=== PATIENT | male | born 1980 | race Native Hawaiian/Other Pacific Islander ===

== ENCOUNTER 2020-08-20 08:57 | Outpatient (REF) | payer MEDICARE, MEDICAID, SELFPAY | END 2020-08-20 08:58 | disposition home or self-care (01) | LOC: HO.LAB 08:57 | PROVIDERS: PCP Physician Assistant; Visit Provider Internal Medicine | DX: Z20.828 Contact with and (suspected) exposure to other viral communicable diseases (principal) | CPT/HCPCS: 36415; 87635 ==

== ENCOUNTER 2022-08-20 12:28 | Outpatient (REF) | payer MEDICARE, MEDICAID, SELFPAY ==
[2022-08-20 13:22] LABS: Influenza A PCR NEGATIVE (Negative); Influenza B PCR NEGATIVE (Negative); Resp Syncy Virus RNA Qual PCR NEGATIVE (Negative); SARS COV2 PCR INHOUSE NEGATIVE (Negative)
== END 2022-08-20 12:29 | disposition home or self-care (01) ==
LOC: HO.LNP 12:28
PROVIDERS: Visit Provider Internal Medicine
DX: Z20.822 Contact with and (suspected) exposure to COVID-19 (principal); R09.89 Other specified symptoms and signs involving the circulatory and respiratory systems
CPT/HCPCS: 0241U

== ENCOUNTER 2022-12-28 11:12 | Outpatient (REF) | payer MEDICARE, MEDICAID, SELFPAY ==
[2022-12-28 11:58] LABS: Influenza A PCR NEGATIVE (Negative); Influenza B PCR NEGATIVE (Negative); Resp Syncy Virus RNA Qual PCR NEGATIVE (Negative); SARS COV2 PCR INHOUSE NEGATIVE (Negative)
== END 2022-12-28 11:13 | disposition home or self-care (01) ==
LOC: HO.LNP 11:12
PROVIDERS: Visit Provider Nurse Practitioner Family
DX: Z20.822 Contact with and (suspected) exposure to COVID-19 (principal); R09.89 Other specified symptoms and signs involving the circulatory and respiratory systems
CPT/HCPCS: 0241U

== ENCOUNTER 2023-11-04 10:54 | Outpatient (AMB) | payer MEDICARE, MEDICAID, SELFPAY ==
[2023-11-04 11:09] VITALS: BP 112/70; PULSE 88; RESP 17; BMI 28.4
--- NOTE | 2023-11-04 11:09 | MHC.PC.OV ---
Vital Signs 11/04/23 11:09 Height 5 ft 6 in Weight 176 lb 2 oz BMI 28.4 BP 112/70 Blood Pressure Location Lt brachial Position Sitting Respiration 17 Pulse 88 Pulse Source Palpation Intake Visit Reasons: pe Intake Note: Patient is here today for a physical. Environmental Advisor Required: No Accompanied by: Son Allergies acetaminophen [ACETAMINOPHEN] Adverse Reaction (Mild, Verified 11/04/23 11:32) chest tightness SEASONAL ALLERGIES Allergy (Unknown, Uncoded 11/04/23 11:11) UNKNOWN - RECEIVES WEEKLY ALLERGY INJECTIONS Medication List - Last Reconciled 11/04/23 by Timbo Herron PA-C albuterol sulfate 90 mcg/actuation 2 puffs PO Q4H 30 days budesonide-formoterol 160-4.5 mcg/actuation (Symbicort) 1 inh inhalation BID 30 days bupropion HCl 300 mg PO QAM bupropion HCl 150 mg PO QAM cetirizine 10 mg PO DAILY PRN citalopram 20 mg PO DAILY loratadine 10 mg PO DAILY montelukast 10 mg PO DAILY risperidone mg PO risperidone 2 mg PO BEDTIME Tobacco use date assessed: 02/16/23 Dental Screening Dental Screen Date: 11/04/23 Did you have a dental visit in the last 12 months?: Yes Did you have a dental problem in the last 6 months where you did not have access to dental care?: No Was dental information given to patient?: Patient has dentist HPI pe HPI Details Patient is a 42-year-old male here today for routine annual physical. Patient has a past medical history significant for moderate persistent asthma, major depressive disorder, tobacco dependence. Moderate persistent asthma: Unfortunately continues to smoke cigarettes and found it very difficult to quit smoking. He does use his rescue inhaler several times per week. Does have a nebulizer at home which he seldom uses for asthma exacerbations. He will continue to try to stop smoking use of nicotine replacement therapy. Does get allergy inj weekly. He does believe there is mold in his apartment. Offered him community navigation evaluation for allergy triggers at his home though he declines. .. Borderline high cholesterol: Most recent lipid panel showing borderline high cholesterol. Will recheck fasting lipids. .. Major depressive disorder: Continues to be followed by a therapist and a psychiatrist who manages his mental health medications. He feels stable on the current medications he is taking for his mental health. Vaccines: Up-to-date with SwiftypeID vaccine, up-to-date with tetanus, needs up-to-date pneumonia vaccine, needs flu vaccine PFSH Surgical History No pertinent past surgical history Family History (Updated 11/04/23 @ 11:39 by Timbo Herron PA-C) Father Diabetes Asthma COPD (chronic obstructive pulmonary disease) Afib Mother Hypertension Maternal Grandmother Cancer Social History Housing: Apartment Alcohol intake: current Patient Tobacco Use Status: Current everyday Tobacco user Tobacco use type: Cigarette Cigarettes Per Day: 10 e-Cigarette/Vaping Use: Never Used Second Hand Smoke Exposure: Yes service: No Current occupational status: unemployed Cognitive needs: No Hearing needs: No Vision needs: No Questionnaire Thrive Questionnaire Date Thrive assessed: 02/16/23 ZEINAB-7 AMB Questionnaire ZEINAB-7 Date ZEINAB - 7 assessed: 02/16/23 Source: Developed by Drs. Endy Brantley, Ankita Ramos, Junior Stanton and colleagues, with an educational oneida from [employer]. ACT Questionnaire In the past 4 weeks, how much of the time did your asthma keep you from getting as much done at work, school or at home?: A little of the time During the past 4 weeks, how often have you had shortness of breath?: Not at all During the past 4 weeks, how often did your asthma symptoms wake you up at night or earlier than usual in the morning?: Once or twice per week During the past 4 weeks, how often have you had to use your rescue inhaler or nebulizer medication?: 2-3 times a week How would you rate your asthma control during the past 4 weeks?: Well controlled ACT Interpretation: Negative Score: 20 Review of Systems Const Denies body aches, Denies chills, Denies excessive sweating, Denies fatigue, Denies fever(s) and Denies headache(s) Eyes Denies blurry vision ENT Denies dysphagia, Denies vertigo, Denies dizziness, Denies headache(s), Denies hearing loss and Denies tinnitus Card Denies chest pain, Denies chest pain with activity, Denies syncope, Denies irregular heart rhythm and Denies dyspnea Resp Denies chest congestion, Denies cough, Denies hemoptysis, Denies dyspnea and Denies wheezing GI Denies abdominal pain, Denies melena, Denies hematochezia, Denies coffee ground emesis, Denies dysphagia, Denies diarrhea, Denies nausea and Denies vomiting Denies difficulty urinating, Denies dysuria, Denies urinary frequency, Denies urinary hesitancy and Denies urinary urgency Musc Denies arthralgias, Denies limited range of motion, Denies muscle cramps and Denies muscle weakness Skin/Breast Denies rash and Denies skin ulcer Neuro Denies Abnormal speech present, Denies confusion, Denies vertigo, Denies dizziness, Denies syncope, Denies headache(s), Denies memory loss and Denies seizure-like activity Psych Denies anxiety, Denies confusion, Denies depression, Denies memory loss, Denies panic attacks and Denies paranoia Endo Denies excessive sweating, Denies fatigue, Denies flushing, Denies polydipsia and Denies polyuria Aller/Immun Denies wheezing Physical exam (Primary Care) Vital Signs: Last Vital Signs Pulse 88 11/04/23 11:09 Resp 17 11/04/23 11:09 BP 112/70 11/04/23 11:09 BMI result Body Mass Index 28.4 Tobacco/Smoking Status: Tobacco use Status Tobacco use date assessed 02/16/23 11/04/23 11:09 Patient Tobacco Use Status Current everyday Tobacco 11/04/23 11:09 Tobacco use type Cigarette 11/04/23 11:09 e-Cigarette/Vaping Use Never Used 11/04/23 11:09 Are you ready to quit: No Tobacco cessation counseling provided: Yes Items discussed: Nicotine replacement and QuitWorks Relapse Prevention: discussed the importance of a supportive environment, discussed negative mood or depression after quitting, weight gain after smoking is common and discussed dietary, exercise and/or lifestyle changes Number of minutes spent counselin CPT code: 03355 - 4-10 Minutes Thrive Assessment: Date of Thrive Assessment Date Thrive assessed 02/16/23 11/04/23 11:09 Const General: cooperative, comfortable, no acute distress, alert and awake; No confusion Orientation/consciousness: oriented to person, oriented to place, patient oriented x3 and No confusion HENMT Head: Yes normocephalic Ears: external ears normal and TM's normal bilaterally Face and sinus: No sinus tenderness Mouth: Normal oral and palatal mucosa present and tongue normal Teeth and gingiva: dentition normal and gingiva normal Throat: Yes posterior oropharynx normal, Yes tonsils normal and Yes uvula midline Eyes Conjunctivae: conjunctivae normal Sclerae: sclerae normal Pupils: Equal, round and reactive pupils present EOM: EOMs intact bilaterally Direct Ophthalmoscopy: No no photophobia Neck Neck: Yes no lymphadenopathy, No tender and Yes no JVD Thyroid: Thyroid normal Carotids: no bruits Chest Chest palpation & inspection: no tenderness Resp Effort & Inspection: normal respiratory effort, no audible wheezes, not labored and no stridor Auscultation: no crackles, no rales, no rhonchi and no wheezes Cardio Jugular venous distension: no JVD Rate: regular rate, not bradycardic and not tachycardic Rhythm: regular rhythm Bruits: no carotid bruits Peripheral pulses: Peripheral pulses 2+ throughout GI Inspection: Yes normal to inspection, No abdominal wall ecchymosis and No visible herniation Palpation (GI): Soft to palpation, nontender, no guarding, not rigid and No hepatosplenomegaly present Auscultation: normoactive bowel sounds General: Yes no CVA tenderness Back/Spine/Pelvis Back: no CVA tenderness and No back tenderness Cervical Spine: cervical ROM normal Thoracic/Lumbar Spine: thoracic and lumbar spine normal to inspection, straight leg raise negative bilaterally, No thoraco-lumbar ROM limited and No lumbar spinal tenderness Skin Lesions: no lesions Rashes: no rashes Wounds: no wounds Neuro General: oriented to person, oriented to place, patient oriented x3, CN's II-XI intact bilaterally and No confusion Cranial nerves: Yes Equal, round and reactive pupils present and Yes Normal accommodation reflex present Cognition (Neuro): normal cognition Speech: No Abnormal speech present Gait exam (Neuro): Normal gait present Motor exam (neuro): 5/5 motor strength present throughout Extrem Right upper extremity: full ROM; no cyanosis Left upper extremity: full ROM; no cyanosis Right lower extremity: no edema Left lower extremity: no edema Psych Appearance: grossly normal Mental Status: mental status grossly normal Affect: normal affect Attitude: cooperative Thought process: Normal thought process present Assessment and Plan Assessment & Plan (1) Annual physical exam: Code(s): Z00.00 - Encounter for general adult medical examination without abnormal findings (2) Tobacco dependence: Code(s): F17.200 - Nicotine dependence, unspecified, uncomplicated Plan: Patient does understand he needs to quit smoking though at this time is not willing to do so. Offered nicotine replacement though already has them available to him at home. (3) Asthma: Code(s): J45.909 - Unspecified asthma, uncomplicated Qualifiers: Asthma complication type: uncomplicated Asthma persistence: intermittent Asthma severity: mild Qualified Code(s): J45.20 - Mild intermittent asthma, uncomplicated Plan: Patient reports his asthma has been fairly well stable with p.r.n. use of his albuterol inhaler and daily use of his Symbicort. Understands he needs to quit smoking. He will try nicotine replacement (4) Borderline high cholesterol: Code(s): E78.9 - Disorder of lipoprotein metabolism, unspecified Plan: Patient has a history of borderline high cholesterol, advised on getting fasting labs to evaluate total cholesterol. Otherwise has been working on lifestyle modifications to reduce high cholesterol foods in his diet. Orders: Orders IgE Antibody (Anti-IgE IgG) Today J45.20 - Mild intermittent asthma, uncomplicated Medications: New nicotine 1 patch transdermal DAILY 14 days 14 ea 1RF F17.200 - Nicotine dependence, unspecified, uncomplicated Changed From loratadine 10 mg PO DAILY 90 tabs 3RF J45.20 - Mild intermittent asthma, uncomplicated To loratadine 10 mg PO DAILY 90 days 90 tabs 3RF J45.20 - Mild intermittent asthma, uncomplicated Refilled budesonide-formoterol 160-4.5 mcg/actuation (Symbicort) 1 inh inhalation BID 30 days 10.2 grams 1RF J45.20 - Mild intermittent asthma, uncomplicated albuterol sulfate 90 mcg/actuation 2 puffs PO Q4H 30 days 8.5 grams 3RF J45.20 - Mild intermittent asthma, uncomplicated montelukast 10 mg PO DAILY 90 tabs 3RF J45.20 - Mild intermittent asthma, uncomplicated Coding Level of Care Code Est Pt Prev Care 40-64y(44309) Diagnoses Annual physical exam Z00.00 Tobacco dependence F17.200 Mild intermittent asthma without complication J45.20 Asthma complication type: uncomplicated Asthma persistence: intermittent Asthma severity: mild Borderline high cholesterol E78.9 Additional Codes Vital Signs *Quality* - CPT code: 78851 - 4-10 Minutes ([id number])
== END 2023-11-04 12:00 | disposition home or self-care (01) ==
PROVIDERS: PCP Physician Assistant; Visit Provider Physician Assistant
DX: Z00.00 Encounter for general adult medical examination without abnormal findings (principal); F17.210 Nicotine dependence, cigarettes, uncomplicated; J45.20 Mild intermittent asthma, uncomplicated; F33.1 Major depressive disorder, recurrent, moderate; E78.9 Disorder of lipoprotein metabolism, unspecified
CPT/HCPCS: 99396

== ENCOUNTER 2023-11-10 09:48 | Outpatient (AMB) | payer MEDICARE, MEDICAID, SELFPAY ==
[2023-11-10 10:54] VITALS: BP 120/80; PULSE 83; TEMP 36.5; O2SAT 96; BMI 32.9
--- NOTE | 2023-11-10 10:54 | MHC.OFFWIV ---
Intake Vital Signs 11/10/23 10:54 Height 5 ft 2 in Weight 180 lb BMI 32.9 BP 120/80 Blood Pressure Location Lt brachial Position Sitting Pulse 83 Pulse Source Pulse Oximeter Temp 97.7 F Temp Source Temporal Artery Scan Pulse Oximetry (%) 96 Oxygen Delivery Method Room Air Intake Visit Reasons: EP chest congestion cough [id number] Intake Note: pt is here today for chest congestion cough started 3 days ago Patient Tobacco Use Status: Current everyday Tobacco user Allergies acetaminophen [ACETAMINOPHEN] Adverse Reaction (Mild, Verified 11/10/23 11:22) chest tightness SEASONAL ALLERGIES Allergy (Unknown, Uncoded 11/04/23 11:11) UNKNOWN - RECEIVES WEEKLY ALLERGY INJECTIONS Medication List - Last Reconciled 11/10/23 by Clementine Norman, [facility]- albuterol sulfate 90 mcg/actuation 2 puffs PO Q4H 30 days budesonide-formoterol 160-4.5 mcg/actuation (Symbicort) 1 inh inhalation BID 30 days bupropion HCl 300 mg PO QAM bupropion HCl 150 mg PO QAM cetirizine 10 mg PO DAILY PRN citalopram 20 mg PO DAILY loratadine 10 mg PO DAILY 90 days montelukast 10 mg PO DAILY nicotine 1 patch transdermal DAILY 14 days risperidone mg PO risperidone 2 mg PO BEDTIME Do you need a note to return to daycare/school/sports/work: Yes HPI HPI Comments History of Present Illness Details here today c/o cough w sputum in the setting of asthma sx started 3 days ago UTD on covid vax but not flu denies fever, chills, chest pain taking maintenance inhaler as directed; has not used TEAGAN as didnt think he needed it yet PFSH Surgical History No pertinent past surgical history Family History (Updated 11/04/23 @ 11:39 by Timbo Herron PA-C) Father Diabetes Asthma COPD (chronic obstructive pulmonary disease) Afib Mother Hypertension Maternal Grandmother Cancer Social History Housing: Apartment Alcohol intake: current Patient Tobacco Use Status: Current everyday Tobacco user Tobacco use type: Cigarette Cigarettes Per Day: 10 e-Cigarette/Vaping Use: Never Used Second Hand Smoke Exposure: Yes service: No Current occupational status: unemployed Cognitive needs: No Hearing needs: No Vision needs: No Review of Systems Const All systems reviewed & are unremarkable except as noted in HPI and below Physical Exam Vital Signs: Last Vital Signs Temp 97.7 F 11/10/23 10:54 Pulse 83 11/10/23 10:54 BP 120/80 11/10/23 10:54 Pulse Ox 96 11/10/23 10:54 Oxygen Delivery Method Room Air 11/10/23 10:54 BMI result Body Mass Index 32.9 Const Other: awake alert nad conjunctiva clear bilar TM intact clear bilat Nares patent, turbinates pale and edematous L>R RRR LS dim throughout, speaking in full setences, mild cough during exam Assessment & Plan Assessment & Plan (1) Asthma exacerbation: Code(s): J45.901 - Unspecified asthma with (acute) exacerbation Qualifiers: Asthma severity: mild Asthma persistence: intermittent Qualified Code(s): J45.21 - Mild intermittent asthma with (acute) exacerbation Plan: . Medications: New azithromycin For 250 mg dose pack: take 500 mg today (day 1), then 250 mg for 4 days (days 2-5) PO 5 days 6 tabs 0RF Patient Instructions: reports doing well w/ the above. he should cont inhaler and make sure to use TEAGAN. did not rx pred as he is undergoing allergy shots and this will interfere should any sx get worse, advised to RTO Coding Level of Care Code Est Pt Level 3 (95306) Diagnoses Mild intermittent asthma with exacerbation J45.21 Asthma severity: mild Asthma persistence: intermittent
== END 2023-11-10 12:11 | disposition home or self-care (01) ==
PROVIDERS: PCP Physician Assistant; Visit Provider Nurse Practitioner Family
DX: J45.21 Mild intermittent asthma with (acute) exacerbation (principal)
CPT/HCPCS: 99213

== ENCOUNTER 2024-04-29 09:05 | Outpatient (AMB) | payer MEDICARE, MEDICAID, SELFPAY ==
[2024-04-29 09:09] VITALS: BP 118/72; PULSE 78; TEMP 36.8; O2SAT 97
--- NOTE | 2024-04-29 09:09 | MHC.OFFWIV ---
Intake Vital Signs 04/29/24 09:09 Height 5 ft 2 in BP 118/72 Blood Pressure Location Rt brachial Position Sitting Pulse 78 Pulse Source Pulse Oximeter Temp 98.2 F Temp Source Oral Pulse Oximetry (%) 97 Intake Visit Reasons: EP sore throat, cough, mucus Intake Note: pt is here for sore throat, cough with mucous Patient Tobacco Use Status: Current everyday Tobacco user Allergies acetaminophen [ACETAMINOPHEN] Adverse Reaction (Mild, Verified 04/29/24 09:19) chest tightness SEASONAL ALLERGIES Allergy (Unknown, Uncoded 04/29/24 09:19) UNKNOWN - RECEIVES WEEKLY ALLERGY INJECTIONS Medication List - Last Reconciled 04/29/24 by Stacy Blevins CNP albuterol sulfate 90 mcg/actuation 2 puffs PO Q4H 30 days budesonide-formoterol 160-4.5 mcg/actuation (Symbicort) 1 inh inhalation BID 30 days bupropion HCl XL 150 mg PO QAM cetirizine 10 mg PO DAILY PRN citalopram 20 mg PO DAILY loratadine 10 mg PO DAILY 90 days montelukast 10 mg PO DAILY risperidone 2 mg PO BEDTIME Do you need a note to return to daycare/school/sports/work: Yes HPI HPI Comments History of Present Illness Details This is a 43-year-old male with history of asthma who presents to walk in clinic for complaint of sore throat, barking cough, and wheezing x 4 days. He does report intermittent fever and chills. He denies recent travel, contact with known Covid, Flu or RSV. He also denies CP, SOB, dizziness, headache, sinus pressure, sputum production, abdominal pain, nausea, vomiting, changes in bowels or bladder. [facility] Surgical History No pertinent past surgical history Family History Father Diabetes Asthma COPD (chronic obstructive pulmonary disease) Afib Mother Hypertension Maternal Grandmother Cancer Social History Housing: Apartment Alcohol intake: current Patient Tobacco Use Status: Current everyday Tobacco user Tobacco use type: Cigarette Cigarettes Per Day: 10 e-Cigarette/Vaping Use: Never Used Second Hand Smoke Exposure: Yes service: No Current occupational status: unemployed Cognitive needs: No Hearing needs: No Vision needs: No Review of Systems Const All systems reviewed & are unremarkable except as noted in HPI and below Reports as per HPI Physical Exam Vital Signs: Last Vital Signs Temp 98.2 F 04/29/24 09:09 Pulse 78 04/29/24 09:09 BP 118/72 04/29/24 09:09 Pulse Ox 97 04/29/24 09:09 Const Other: General: awake, alert, oriented. Answers questions appropriately. Fully engaged in examination. Skin: warm, dry, intact HEENT: TMs intact bilaterally, without erythema or exudate. Posterior pharynx mildly erythema without exudate. Sclera without icterus or injection. Cardiac: External chest normal in appearance. Respiratory: Dry course cough, bilateral upper lobe expiratory wheezes auscultated, bilateral lower lobes diminshed. Abdomen: without gross distension. Neurological: Oriented to person, place, time and situation. Thought process intact. Psychiatric: Appropriate mood and affect. Good judgment and insight. Results AMB Rapid Strep AMB Rapid Strep Negative Last Edit by Hemant Lu CMA on 04/29/24 09:26 Results Reviewed Results Reviewed: Laboratory Last Values Strep Scn Rapid Clinic Negative 04/29/24 09:26 Assessment & Plan Assessment & Plan (1) URI (upper respiratory infection): Code(s): J06.9 - Acute upper respiratory infection, unspecified Qualifiers: URI type: unspecified URI Qualified Code(s): J06.9 - Acute upper respiratory infection, unspecified Plan: This is a 43-year-old male with a hx of asthma seen today in office for complaint of symptoms of upper respiratory infection, barking dry cough, sore throat and wheezing x 4 days. Rapid strep test negative Will treat with azithromycin 250 mg, 2 tabs po today, followed by 1 tab po qd x 4 days for suspected bronchitis, instructed to take antibiotic with food to reduce GI upset. Instructed to return to office for worsening or unresolved symptoms or f/u with PCP. Orders: Orders AMB Rapid Strep Screen Today Z13.9 - Encounter for screening, unspecified Medications: New azithromycin For 250 mg dose pack: take 500 mg today (day 1), then 250 mg for 4 days (days 2-5) PO 6 tabs 0RF J06.9 - Acute upper respiratory infection, unspecified Coding Level of Care Code Est Pt Level 2 (59049) Diagnoses Upper respiratory tract infection, unspecified type J06.9 URI type: unspecified URI
== END 2024-04-29 09:34 | disposition home or self-care (01) ==
PROVIDERS: PCP Physician Assistant; Visit Provider Nurse Practitioner Acute Care
DX: J06.9 Acute upper respiratory infection, unspecified (principal); J02.9 Acute pharyngitis, unspecified
CPT/HCPCS: 87880; 99212

== ENCOUNTER 2024-05-08 14:19 | Outpatient (AMB) | payer MEDICARE, MEDICAID, SELFPAY ==
--- NOTE | 2024-05-08 14:20 | A.OFFPC_ITS ---
Vital Signs 05/08/24 14:22 Height 5 ft 2 in Weight 175 lb 2 oz BMI 32.0 BP 126/84 Blood Pressure Location Lt brachial Position Sitting Pulse 76 Pulse Source Pulse Oximeter Pulse Oximetry (%) 96 Oxygen Delivery Method Room Air Intake Visit Reasons: f/u asthma Community Action Worker Required: No Accompanied by: Self / Same As Patient Allergies acetaminophen [ACETAMINOPHEN] Adverse Reaction (Mild, Verified 05/08/24 14:31) chest tightness SEASONAL ALLERGIES Allergy (Unknown, Uncoded 05/08/24 14:31) UNKNOWN - RECEIVES WEEKLY ALLERGY INJECTIONS Medication List - Last Reconciled 05/08/24 by Timbo Herron PA-C albuterol sulfate 90 mcg/actuation 2 puffs PO Q4H 30 days budesonide-formoterol 160-4.5 mcg/actuation (Symbicort) 1 inh inhalation BID 30 days bupropion HCl XL 150 mg PO QAM cetirizine 10 mg PO DAILY PRN citalopram 20 mg PO DAILY loratadine 10 mg PO DAILY 90 days montelukast 10 mg PO DAILY risperidone 2 mg PO BEDTIME Tobacco use date assessed: 05/08/24 Dental Screening Dental Screen Date: 05/08/24 Did you have a dental visit in the last 12 months?: Yes Did you have a dental problem in the last 6 months where you did not have access to dental care?: No Was dental information given to patient?: Patient has dentist HPI f/u asthma HPI Details Patient is a 43-year-old male here today for follow-up visit Patient has a past medical history significant for moderate persistent asthma, major depressive disorder, tobacco dependence. Has a part-time job at a local [employer]. Moderate persistent asthma: Unfortunately continues to smoke cigarettes and found it very difficult to quit smoking. He does use his rescue inhaler several times per week. Does have a nebulizer at home which he seldom uses for asthma exacerbations. He will continue to try to stop smoking use of nicotine replacement therapy. .. Borderline high cholesterol: Most recent lipid panel showing borderline high cholesterol. He admits to dietary indiscretion. Will recheck fasting lipids before upcoming office visit. .. Major depressive disorder: Continues to be followed by a therapist and a psychiatrist who manages his mental health medications. He feels stable on the current medications he is taking for his mental health. He still struggles with anxiety to which he has been working on. [facility] Surgical History No pertinent past surgical history Family History Father Diabetes Asthma COPD (chronic obstructive pulmonary disease) Afib Mother Hypertension Maternal Grandmother Cancer Social History Housing: Apartment Alcohol intake: current Patient Tobacco Use Status: Current everyday Tobacco user Tobacco use type: Cigarette Cigarettes Per Day: 10 e-Cigarette/Vaping Use: Never Used Second Hand Smoke Exposure: Yes service: No Current occupational status: unemployed Cognitive needs: No Hearing needs: No Vision needs: No Questionnaire PHQ-9 Over the last 2 weeks, how often have you been bothered by any of the following problems? 1. Little interest or pleasure in doing things: not at all 2. Feeling down, depressed, or hopeless: not at all 3. Trouble falling or staying asleep, or sleeping too much: not at all 4. Feeling tired or having little energy: not at all 5. Poor appetite or overeating: not at all 6. Feeling bad about yourself - or that you are a failure or have let yourself or your family down: not at all 7. Trouble concentrating on things, such as reading the newspaper or watching television: not at all 8. Moving or speaking so slowly that other people could have noticed. Or the opposite - being so fidgety or restless that you have been moving around a lot more than usual: not at all 9. Thoughts that you would be better off or of hurting yourself in some way: not at all Total score: 0 Depression Screening Interpretation: Negative Depression Screening Done: Yes 81000 - PHQ-9 Billing: Yes Source: Developed by Drs. Endy Brantley, Ankita Ramos, Junior Stanton and colleagues, with an educational oneida from [employer]. Thrive Questionnaire Date Thrive assessed: 05/08/24 I am a: Patient What is your living situation today?: I have a steady place to live Within the past 12 months, did the food you bought not last and you didn't have the money to get more?: Never true Within the past 12 months, did you worry whether your food would run out before you got money to buy more?: Never true Do you have trouble paying for medicines?: No Do you have trouble getting transportation to medical appointments?: No Do you have trouble paying your heating and electricity bill?: No Do you have trouble taking care of your child, family member or friend?: No Do you have trouble with day-to-day activities such as bathing, preparing meals, shopping, managing finances, etc.?: No Are you currently unemployed and looking for a job?: No Are you interested in more education?: No Please select the resources that you would like help with: None Currently or been in a relationship where the following occur: no concerns reported THRIVE Score: 0 AUDIT C Alcohol Use Questionnaire (AUDIT-C) 1. How often do you have a drink containing alcohol?: Monthly or less 2. How many drinks containing alcohol do you have on a typical day when you are drinking?: 1 or 2 3. How often do you have six or more drinks on one occasion?: Never Total Score: 1 ZEINAB-7 AMB Questionnaire ZEINAB-7 Date ZEINAB - 7 assessed: 05/08/24 Feeling nervous, anxious, or on edge: 0 = Not at all Not being able to stop or control worryin = Not at all Worrying too much about different things: 0 = Not at all Trouble relaxin = Not at all Being so restless that it is hard to sit still: 0 = Not at all Becoming easily annoyed or irritable: 0 = Not at all Feeling afraid as if something awful might happen: 0 = Not at all Total ZEINAB-7 score (0-4 normal; 5-9 mild; 10-14 moderate; 15-21 severe): 0 Source: Developed by Drs. Endy Brantley, Ankita Ramos, Junior Stanton and colleagues, with an educational oneida from [employer]. ZEINAB-7 Assessment Billing ZEINAB-7 Assessment Tool: ZEINAB-7 Assessment 29719 ACT Questionnaire In the past 4 weeks, how much of the time did your asthma keep you from getting as much done at work, school or at home?: Some of the time During the past 4 weeks, how often have you had shortness of breath?: 1-2 times a week During the past 4 weeks, how often did your asthma symptoms wake you up at night or earlier than usual in the morning?: Once or twice per week During the past 4 weeks, how often have you had to use your rescue inhaler or nebulizer medication?: More than 3 times per day How would you rate your asthma control during the past 4 weeks?: Somewhat controlled ACT Interpretation: Positive ACT Branch: Follow up visit scheduled Score: 15 Review of Systems Const Denies headache(s) Eyes Denies loss of vision ENT Denies vertigo, Denies dizziness, Denies headache(s) and Denies sore throat Card Denies chest pain, Denies leg edema and Denies lightheadedness Resp Denies cough, Denies hemoptysis and Denies wheezing GI Denies abdominal pain, Denies melena, Denies constipation, Denies diarrhea and Denies vomiting Denies dysuria, Denies urinary frequency and Denies urinary urgency Musc Denies arthralgias, Denies joint swelling, Denies numbness and Denies tingling Neuro Denies Abnormal speech present, Denies behavioral changes, Denies vertigo, Denies dizziness, Denies headache(s), Denies loss of vision, Denies memory loss, Denies numbness and Denies tingling Psych Denies anxiety, Denies behavioral changes, Denies depression, Denies memory loss and Denies panic attacks Cuco/Lymph Denies easy bleeding and Denies easy bruising Aller/Immun Denies wheezing Physical exam (Primary Care) Vital Signs: Last Vital Signs Pulse 76 05/08/24 14:22 BP 126/84 05/08/24 14:22 Pulse Ox 96 05/08/24 14:22 Oxygen Delivery Method Room Air 05/08/24 14:22 BMI result Body Mass Index 32.0 Tobacco/Smoking Status: Tobacco use Status Tobacco use date assessed 05/08/24 05/08/24 14:29 Patient Tobacco Use Status Current everyday Tobacco 05/08/24 14:20 Tobacco use type Cigarette 05/08/24 14:20 e-Cigarette/Vaping Use Never Used 05/08/24 14:20 PHQ-9: PHQ-9 Score PHQ-9: Total score 0 05/08/24 14:36 Depression Screening Interpretation: Negative Thrive Assessment: Date of Thrive Assessment Date Thrive assessed 05/08/24 05/08/24 14:29 Currently or been in a relationship where the following occur: no concerns reported Const General: healthy appearing, no acute distress, alert and awake Nutritional Appearance: well nourished Orientation/consciousness: oriented to person, oriented to place and oriented to time HENMT Ears: TM's normal bilaterally General nose exam: Normal nasal mucous membranes and turbinates present Eyes Conjunctivae: conjunctivae normal Sclerae: sclerae normal Pupils: Equal, round and reactive pupils present Neck Neck: Yes no lymphadenopathy and Yes no JVD Thyroid: Thyroid normal Carotids: no bruits Resp Effort & Inspection: normal respiratory effort and not tachypneic Auscultation: no crackles, no rales, no rhonchi and no wheezes Cardio Rate: regular rate Rhythm: regular rhythm Heart sounds: no murmurs and normal S1 and S2 GI Palpation (GI): Soft to palpation, nontender, no hepatomegaly and no splenomegaly Auscultation: normal bowel sounds Skin General skin exam: no rashes or lesions noted and dry skin Neuro General: oriented to person, oriented to place and oriented to time Cranial nerves: Yes Equal, round and reactive pupils present Speech: No Abnormal speech present Gait exam (Neuro): Normal gait present Motor exam (neuro): no tremor noted Extrem Right upper extremity: full ROM Left upper extremity: full ROM Right lower extremity: full ROM; no edema Left lower extremity: full ROM; no edema Psych Mental Status: mental status grossly normal Speech and movement: Normal speech and movement present Affect: normal affect Attitude: cooperative Thought process: Normal thought process present Assessment and Plan Assessment & Plan (1) Tobacco dependence: Code(s): F17.200 - Nicotine dependence, unspecified, uncomplicated Plan: Patient does understand he needs to quit smoking though at this time is not willing to do so. Offered nicotine replacement though already has them available to him at home. (2) Asthma: Code(s): J45.909 - Unspecified asthma, uncomplicated Qualifiers: Asthma complication type: uncomplicated Asthma persistence: intermittent Asthma severity: mild Qualified Code(s): J45.20 - Mild intermittent asthma, uncomplicated Plan: Patient reports his asthma has been fairly well stable with p.r.n. use of his albuterol inhaler and daily use of his Symbicort. Understands he needs to quit smoking. (3) Borderline high cholesterol: Code(s): E78.9 - Disorder of lipoprotein metabolism, unspecified Plan: Patient has a history of borderline high cholesterol, advised on getting fasting labs to evaluate total cholesterol. Otherwise has been working on lifestyle modifications to reduce high cholesterol foods in his diet. (4) Allergic rhinitis: Code(s): J30.9 - Allergic rhinitis, unspecified Qualifiers: Allergic rhinitis seasonality: unspecified Allergic rhinitis trigger: other Qualified Code(s): J30.89 - Other allergic rhinitis Plan: Continues to rotate his anti allergy medications. He reports his dog had a few months ago and allergies have been a bit better. Orders: Orders Lipid Panel 05/08/24 E78.9 - Disorder of lipoprotein metabolism, unspecified Comprehensive [facility]. Panel Fast 05/08/24 Z13.1 - Encounter for screening for diabetes mellitus Complete Blood Count no Diff 05/08/24 J45.20 - Mild intermittent asthma, uncomplicated IgE Antibody (Anti-IgE IgG) 05/08/24 J45.20 - Mild intermittent asthma, uncomplicated Resp Allergy Profile Region I 05/08/24 J45.20 - Mild intermittent asthma, uncomplicated, R05.9 - Cough, unspecified Medications: Changed From cetirizine 10 mg PO DAILY PRN allergies J45.20 - Mild intermittent asthma, uncomplicated To cetirizine 10 mg PO DAILY 90 tabs 1RF allergies 90 days J45.20 - Mild intermittent asthma, uncomplicated Refilled budesonide-formoterol 160-4.5 mcg/actuation (Symbicort) 1 inh inhalation BID 10.2 grams 1RF 30 days J45.20 - Mild intermittent asthma, uncomplicated loratadine 10 mg PO DAILY 90 tabs 3RF 90 days J45.20 - Mild intermittent asthma, uncomplicated montelukast 10 mg PO DAILY 90 tabs 3RF J45.20 - Mild intermittent asthma, uncomplicated Patient Instructions: Goals: Quit smoking, total cholesterol to be below 200 Barriers: Adherence to healthy eating habits and physical activity. Availability of cigarettes Coding Level of Care Code Est Pt Level 4 (37785) Diagnoses Tobacco dependence F17.200 Mild intermittent asthma without complication J45.20 Asthma complication type: uncomplicated Asthma persistence: intermittent Asthma severity: mild Borderline high cholesterol E78.9 Allergic rhinitis due to other allergic trigger, unspecified seasonality J30.89 Allergic rhinitis seasonality: unspecified Allergic rhinitis trigger: other Additional Codes ZEINAB-7 Assessment Billing - ZEINAB-7 Assessment Tool: ZEINAB-7 Assessment [id number] ([id number])
[2024-05-08 14:22] VITALS: BP 126/84; PULSE 76; O2SAT 96; BMI 32.0
== END 2024-05-08 14:52 | disposition home or self-care (01) ==
PROVIDERS: PCP Physician Assistant; Visit Provider Physician Assistant
DX: J45.20 Mild intermittent asthma, uncomplicated (principal); F17.200 Nicotine dependence, unspecified, uncomplicated; E78.9 Disorder of lipoprotein metabolism, unspecified; J30.89 Other allergic rhinitis
CPT/HCPCS: 99214

== ENCOUNTER 2024-07-27 12:51 | Outpatient (AMB) | payer MEDICARE, MEDICAID, SELFPAY ==
[2024-07-27 13:18] VITALS: BP 124/84; PULSE 83; TEMP 36.9; O2SAT 98; BMI 27.4
--- NOTE | 2024-07-27 13:18 | MHC.OFFWIV ---
Intake Vital Signs 07/27/24 13:18 Height 5 ft 8 in Weight 180 lb BMI 27.4 BP 124/84 Blood Pressure Location Lt brachial Position Sitting Pulse 83 Pulse Source Pulse Oximeter Temp 98.5 F Temp Source Oral Pulse Oximetry (%) 98 Oxygen Delivery Method Room Air Intake Visit Reasons: EP congestion, mucus Intake Note: pt c/o congestion, mucus, sore throat, cough. Started 3 days ago Patient Tobacco Use Status: Current everyday Tobacco user Allergies acetaminophen [ACETAMINOPHEN] Adverse Reaction (Mild, Verified 07/27/24 13:24) chest tightness SEASONAL ALLERGIES Allergy (Unknown, Uncoded 07/27/24 13:24) UNKNOWN - RECEIVES WEEKLY ALLERGY INJECTIONS Medication List - Last Reconciled 07/27/24 by Yolanda Solano NP albuterol sulfate 90 mcg/actuation 2 puffs PO Q4H 30 days budesonide-formoterol 160-4.5 mcg/actuation (Symbicort) 1 inh inhalation BID 30 days bupropion HCl XL 150 mg PO QAM cetirizine 10 mg PO DAILY PRN citalopram 20 mg PO DAILY montelukast 10 mg PO DAILY risperidone 2 mg PO BEDTIME Do you need a note to return to daycare/school/sports/work: No HPI HPI Comments History of Present Illness Details 43 y/o male patient who presents to the walk in clinic with c/o URI symptoms for 4-5 days now. PFSH Surgical History No pertinent past surgical history Family History Father Diabetes Asthma COPD (chronic obstructive pulmonary disease) Afib Mother Hypertension Maternal Grandmother Cancer Social History Housing: Apartment Alcohol intake: current Patient Tobacco Use Status: Current everyday Tobacco user Tobacco use type: Cigarette Cigarettes Per Day: 10 e-Cigarette/Vaping Use: Never Used Second Hand Smoke Exposure: Yes service: No Current occupational status: unemployed Cognitive needs: No Hearing needs: No Vision needs: No Review of Systems Const All systems reviewed & are unremarkable except as noted in HPI and below Physical Exam Vital Signs: Last Vital Signs Temp 98.5 F 07/27/24 13:18 Pulse 83 07/27/24 13:18 BP 124/84 07/27/24 13:18 Pulse Ox 98 07/27/24 13:18 Oxygen Delivery Method Room Air 07/27/24 13:18 BMI result Body Mass Index 27.4 Const General: cooperative, comfortable and no acute distress Orientation/consciousness: patient oriented x3 HEENT Head: Yes normocephalic Ears: external ears normal and TM abnormal with fluid behind the TM General nose exam: Abnormal mucous membranes and turbinates present boggy and erythematous and Nasal discharge present Face and sinus: Yes normal facial exam Mouth: moist mucous membranes Throat: Yes postnasal drainage Resp Effort & Inspection: normal respiratory effort and able to speak in complete sentences Auscultation: clear to auscultation bilaterally, no crackles, no rales, no rhonchi and wheezes inspiratory wheezes and upper bilaterally Cardio Heart sounds: S1 normal heart sound present and S2 normal heart sound present Neuro General: patient oriented x3 Results AMB Rapid Strep AMB Rapid Strep Negative Last Edit by Hayder Hopkins CMA on 07/27/24 13:41 Results Reviewed Results Reviewed: Laboratory Last Values Strep Scn Rapid Clinic Negative 07/27/24 13:39 Assessment & Plan Assessment & Plan (1) URI (upper respiratory infection): Code(s): J06.9 - Acute upper respiratory infection, unspecified Qualifiers: URI type: unspecified URI Qualified Code(s): J06.9 - Acute upper respiratory infection, unspecified Plan: Ordered Z-pack Acetaminophen for pain relief Ordered SARs and Rapid strep Orders: Orders AMB Rapid Strep Screen Today Z13.9 - Encounter for screening, unspecified SARS-CoV2/FLU/RSV Today J06.9 - Acute upper respiratory infection, unspecified Medications: New azithromycin 500 mg PO DAILY 3 days 3 tabs 0RF J06.9 - Acute upper respiratory infection, unspecified Discontinued loratadine Discontinued Reason: Patient no longer taking 10 mg PO DAILY PRN J45.20 - Mild intermittent asthma, uncomplicated Coding Level of Care Code Est Pt Level 3 (02610) Diagnoses Upper respiratory tract infection, unspecified type J06.9 URI type: unspecified URI Time Spent (min) 15
== END 2024-07-27 14:05 | disposition home or self-care (01) ==
PROVIDERS: PCP Physician Assistant; Visit Provider Nurse Practitioner Family
DX: J06.9 Acute upper respiratory infection, unspecified (principal); J02.9 Acute pharyngitis, unspecified
CPT/HCPCS: 87880; 99213

== ENCOUNTER 2024-07-27 13:39 | Outpatient (REF) | payer MEDICARE, MEDICAID, SELFPAY ==
[2024-07-27 18:30] LABS: Influenza A PCR NEGATIVE (Negative); Influenza B PCR NEGATIVE (Negative); Resp Syncy Virus RNA Qual PCR NEGATIVE (Negative); SARS COV2 PCR INHOUSE POSITIVE (Negative)
== END 2024-07-27 13:40 | disposition home or self-care (01) ==
LOC: HO.LAB 13:39
PROVIDERS: Visit Provider Nurse Practitioner Family
DX: J06.9 Acute upper respiratory infection, unspecified (principal)
CPT/HCPCS: 0241U

== ENCOUNTER 2024-12-11 16:36 | Emergency (ER) | payer MEDICARE, MEDICAID, SELFPAY ==
--- NOTE | ~2024-12-11 | XR_ITS ---
CLINICAL HISTORY: cough 2 view chest x-ray Comparison: CR/IN - CHEST 2 VIEWS - 01/07/18 23:54 EST CR - CHEST 2 VIEWS [id number] - 08/24/17 14:02 EDT Findings: No consolidation or effusion. Normal size heart. No acute fracture. IMPRESSION: 1. No acute findings. This document has been electronically signed by: Deacon Hirsch MD on 12/11/2024 17:14:42
[2024-12-11 16:47] VITALS: BP 141/95; PULSE 112; RESP 18; TEMP 36.6; O2SAT 97; BMI 28.2
--- NOTE | 2024-12-11 16:52 | ED_ITS ---
HPI - General Adult General Chief complaint: Upper Respiratory Symptoms Stated complaint: congested cough,fever Time Seen by Provider: 12/11/24 18:41 Source: patient Mode of arrival: ambulatory Limitations: no limitations History of Present Illness ED Provider: Adelina Dolan PA-C HPI narrative: Patient is a 44 year old assigned male at with a history of asthma and MDD presenting to the emergency department today with a cough and body aches. Patient states that since last night he has had a cough, sore throat, and body aches. Patient denies any dizziness, lightheadedness, abdominal pain, nausea, vomiting, fever, chills, blurry vision, double vision, loss of vision, chest pain, difficulty breathing, shortness of breath, back pain, night sweats, pain with urination, increased urinary frequency, increased urinary urgency, blood in his urine or stool, syncope or a near syncopal episode, recent trauma or falls, bowel incontinence, bladder incontinence, or any other complaints at this time. Onset (ago): day(s) (1) Relieving factors: none Exacerbating factors: none Associated symptoms: cough Treatments prior to arrival: none Related Data Home Medications ?Medication ?Instructions ?Recorded ?Confirmed citalopram 20 mg tablet 20 mg PO DAILY 08/20/20 05/08/24 bupropion HCl 150 mg 24 hr tablet, 150 mg PO QAM 11/04/23 05/08/24 extended release risperidone 2 mg tablet 2 mg PO BEDTIME 11/04/23 05/08/24 cetirizine 10 mg tablet 10 mg PO DAILY PRN allergies 07/27/24 Previous Rx's ?Medication ?Instructions ?Recorded budesonide-formoterol HFA 160 1 inh inhalation BID 30 days #10.2 05/08/24 mcg-4.5 mcg/actuation aerosol grams inhaler (Symbicort) azithromycin 500 mg tablet 500 mg PO DAILY 3 days #3 tabs 07/27/24 montelukast 10 mg tablet 10 mg PO DAILY #90 tabs 10/03/24 albuterol sulfate 90 mcg/actuation 2 puff PO Q4H 30 days #8.5 grams 12/08/24 aerosol inhaler Allergies Allergy/AdvReac Type Severity Reaction Status Date / Time acetaminophen [ACETAMINOPHEN] AdvReac Mild chest Verified 12/11/24 16:48 tightness SEASONAL ALLERGIES Allergy Unknown UNKNOWN - Uncoded 07/27/24 13:24 RECEIVES WEEKLY ALLERGY INJECTIONS Review of Systems Constitutional: Constitutional: Reports no additional constitutional complaints, Reports body ache(s), Denies chills, Denies fever(s) and Denies night sweats Eyes: Eyes: Reports no additional eye complaints, Denies blurry vision, Denies change in vision, Denies diplopia, Denies eye discharge, Denies loss of vision and Denies eye pain ENT: Denies dizziness and Reports sore throat Cardiovascular: Cardiovascular: Reports no additional cardiovascular complaints, Denies chest pain, Denies lightheadedness, Denies Loss of Consciousness and Denies dyspnea Respiratory: Respiratory: Reports no additional respiratory complaints, Reports cough and Denies dyspnea Gastrointestinal: Gastrointestinal: Reports no additional gastrointestinal complaints, Denies abdominal pain, Denies melena, Denies hematochezia, Denies change in bowel habits and Denies change in stool character Genitourinary: Genitourinary: Reports no additional male genitourinary complaints, Denies hematuria, Denies oliguria, Denies difficulty urinating, Denies dysuria, Denies urinary frequency, Denies urinary hesitancy, Denies urinary incontinence and Denies urinary urgency Musculoskeletal: Musculoskeletal: Reports no additional musculoskeletal complaints, Denies numbness and Denies tingling Neurologic: Denies dizziness, Denies loss of vision, Denies numbness and Denies tingling Psychiatric: Psychiatric: Reports no additional psychiatric complaints Endocrine: Endocrine: Reports no additional endocrine complaints Hematologic/Lymphatic: Hematologic/Lymphatic: Reports no additional hematologic/lymphatic complaints Allergic/Immunologic: Allergic/Immunologic: Reports no additional allergic/immunologic complaints [facility] Past Medical History Attestation statement: The following information was validated with the patient. Source: old records reviewed and nursing notes reviewed Surgical History No pertinent past surgical history Family History Family History Father Diabetes Asthma COPD (chronic obstructive pulmonary disease) Afib Mother Hypertension Maternal Grandmother Cancer Social History Social History Housing: Apartment Alcohol intake: current Patient Tobacco Use Status: Current everyday Tobacco user Tobacco use type: Cigarette Cigarettes Per Day: 10 e-Cigarette/Vaping Use: Never Used Second Hand Smoke Exposure: Yes Advance Directives: No Advance Directives Information Provided: No Do you have a plan to hurt others: No Plan service: No Current occupational status: unemployed Cognitive needs: No Hearing needs: No Vision needs: No Physical Exam ED Vital Signs: Vital Signs - 24 hr 12/11/24 16:47 Temperature 97.8 F Pulse Rate 112 H Respiratory Rate 18 Blood Pressure 141/95 H Pulse Oximetry 97 Oxygen Delivery Method Room Air BMI result Body Mass Index 28.2 Const General: cooperative, no acute distress, alert and awake Nutritional Appearance: well nourished Orientation/consciousness: patient oriented x3 Limitations: no limitations HENMT Head: Yes normal to inspection and Yes atraumatic Ears: hearing grossly normal bilaterally and external ears normal General nose exam: Normal external nose present, no nasal discharge noted and no epistaxis Face and sinus: Yes normal facial exam, No abrasion and No laceration Mouth: Normal oral and palatal mucosa present, no drooling and no muffled voice Eyes General: appearance normal, both eyes and all related structures Periorbital: periorbital findings normal Eyelids: Yes eyelids normal Conjunctivae: conjunctivae normal Pupils: Equal, round and reactive pupils present EOM: EOMs intact bilaterally Neck Neck: Yes normal visual inspection, Yes full ROM and Yes no lymphadenopathy Chest Chest palpation & inspection: normal inspection of the chest Resp Effort & Inspection: normal respiratory effort and able to speak in complete sentences GI Inspection: Yes normal to inspection Neuro General: patient oriented x3 and moves all extremities Cranial nerves: Yes Equal, round and reactive pupils present Cognition (Neuro): normal cognition Extrem General: Yes normal to inspection, Yes full ROM and Yes capillary refill normal Psych Appearance: grossly normal Mental Status: mental status grossly normal Affect: normal affect Attitude: cooperative Thought process: Normal thought process present Thought content: Normal thought content present Insight: Good insight present (Psych) Course Course Course Narrative: RME performed by Adelina Dolan PA-C. Patient is a 44 year old assigned male at presenting to the emergency department with a sore throat, congestion, and body aches. Detailed physical exam and review of systems are deferred to the speech and language clinician. Imaging and swabs ordered. Patient placed back in the waiting room pending room availability and results. Medical Decision Making Medical Decision Making MDM Narrative: Patient is a 44 year old assigned male at with a history of asthma and MDD presenting to the emergency department today with a cough and body aches. Patient's physical exam was unremarkable. Patient's influenza test was positive. Patient's chest x-ray showed no acute process. I explained my physical exam findings as well as all test results to the patient. I answered all questions asked by the patient. I stressed the importance of the patient taking his medication as directed (either prescribed or as the over the counter packaging recommends). I stressed the importance of the patient following up with his primary care provider. I stressed the importance of the patient returning to the emergency department immediately if his symptoms were to worsen or if he were to develop any dizziness, shortness of breath, difficulty breathing, chest pain, blurry vision, loss of vision, nausea, vomiting, abdominal pain, fever, chills, back pain, or any other complaints. Patient verbalized agreement and understanding with this treatment plan and discharge. Differential Diagnosis Differential Diagnoses: The differential diagnosis associated with the presentation includes Influenza COVID-19 RSV Viral illness PNA Admission/Observation Consideration of admission/observation: Escalation of care including admission/observation considered Patient would have been admitted to the hospital had his work up had any findings where hospital admission was appropriate and his clinical presentation warranted hospital admission. Lab Data [facility] Lab Attestation statement: I reviewed the patient's lab results. My interpretation of these results are in the [facility] Rationale portion of this note. Labs: Lab Results 12/11/24 Range/Units 17:07 Influenza Type A (PCR) POSITIVE A (Negative) Influenza Type B (PCR) NEGATIVE (Negative) RSV RNA Qual (PCR) NEGATIVE (Negative) SARS-CoV-2 RNA (RT-PCR) NEGATIVE (Negative) S. pyogenes GrpA MIKA Negative (Negative) Independent Interpretation I performed an independent interpretation of an: Plain X-Ray Interpretation: My interpretation is in agreement with the radiologist's impression of this imaging study. CLINICAL HISTORY: cough 2 view chest x-ray Comparison: CR/AZ - CHEST 2 VIEWS - 2/23/18 23:54 EST CR - CHEST 2 VIEWS [id number] - 08/24/17 14:02 EDT Findings: No consolidation or effusion. Normal size heart. No acute fracture. IMPRESSION: 1. No acute findings. This document has been electronically signed by: Deacon Hirsch MD on 12/11/2024 17:14:42 Dictated By: Deacon Hirsch MD Signed By: Electronically signed by Deacon Hirsch MD 12/11/24 0611 Radiology Impression Discussion of test interpretation with radiology: I have reviewed the radiologist's reading. Discharge Plan Discharge Clinical Impression: Influenza Patient Disposition: Home, Self-Care Instructions: Influenza (DC) Additional Instructions: Follow up with your primary care provider. Return to the emergency department immediately if your symptoms worsen or if you develop any dizziness, shortness of breath, difficulty breathing, chest pain, blurry vision, loss of vision, nausea, vomiting, abdominal pain, fever, chills, back pain, or any other complaints. Prescriptions: No Action montelukast 10 mg tablet 10 mg PO DAILY Qty: 90 3RF albuterol sulfate 90 mcg/actuation HFA aerosol inhaler 2 puff PO Q4H 30 Days Qty: 8.5 3RF citalopram 20 mg tablet 20 mg PO DAILY budesonide-formoterol [Symbicort] 160-4.5 mcg/actuation HFA aerosol inhaler 1 inh inhalation BID 30 Days Qty: 10.2 1RF cetirizine 10 mg tablet 10 mg PO DAILY PRN (Reason: allergies) azithromycin 500 mg tablet 500 mg PO DAILY 3 Days Qty: 3 0RF bupropion HCl 150 mg tablet extended release 24 hr 150 mg PO QAM risperidone 2 mg tablet 2 mg PO BEDTIME Referrals: Timbo Herron PA-C [Primary Care Provider] - Stand Alone Forms: Work/School Release Discharge Date/Time: 12/11/24 18:49 Print Language: Estonian
[2024-12-11 17:34] LABS: IDNOW Serial# 6674DD1D; Strep A Nucleic Acid Negative (Negative)
[2024-12-11 18:05] LABS: Influenza A PCR POSITIVE (Negative); Influenza B PCR NEGATIVE (Negative); Resp Syncy Virus RNA Qual PCR NEGATIVE (Negative); SARS COV2 PCR INHOUSE NEGATIVE (Negative)
--- OUTSIDE RECORDS SUMMARY | 2024-12-11 20:11 | XMS_ITS | Clinical Summary ---
Author Organization [email or web address] Address [address] [place] [address] [address] [place] [address] Care Team Providers Care Relations Coordinator Name Role Phone Unavailable Primary Care Provider Unavailabl e Allergies No known active allergies Medications No known medications Social History Tobacco Use Types Packs/Day Years Used Date Smoking Tobacco: Every Day Cigarettes 0.5 13 Passive Smoke Exposure: Never Smokeless Tobacco: Never Tobacco Cessation:Ready to Q uit: Not Asked; Counseling Given: Not Answered Alcohol Use Standard Drinks/Week Comments Defer 0 (1 standard drink = 0.6 oz pur e alcohol) Sex and Gender Information Value Date Recorded Sex Assigned at Male 09/14/2022 10:17 AM EDT Legal Sex Male 10:17 AM EDT Gender Identity Male 09/14/2022 10:17 AM EDT Sexual Orientation Straight 09/14/2022 10 :17 AM EDT Last Filed Vital Signs Vital Sign Reading Time Taken Comments Blood Pressure 118/78 03/26/2023 10:39 AM EDT Pulse 76 03/26/2023 10:39 AM EDT Temperature - - Respiratory Rate - - Oxygen Saturation - - Inhaled Oxygen Concentration - - Weight - - Height - - Body Mass Index - - Plan of Treatment Health Maintenance Due Date Last Done Comments Dental Prophylaxis 1981 Dental X-Ray: Full Mouth 1981 Depression Screening 1981 HIV Screening 1981 Lipid Panel 1981 SDOH Screening 1981 Alcohol/Substance Use Screening 1993 Family Planning (PISQ) 1996 Hepatitis C Screening 1999 Hepatitis B Vaccines (1 of 3 - 19+ 3-dose series) 2000 Pneumococcal Vaccine: Pediatrics (0 to 5 Years) and At-Risk Patients (6 to 64 Years) (2 of 2 - PCV) 09/26/2019 09/26/2018 Dental Oral Exam 07/24/2023 01/20/2023 Dental X-Ray: Bitewings 01/22/2024 01/20/2023, 12/28 Tobacco Screening 03/23/2024 03/23/2023 COVID-19 Vaccine ( - season) 2024 11/17/2021, 02/20/2021, 01/24/2021 Influenza Vaccine (#1) 2024 2, 09/30/2020, 10/30/2019, Additional history exists DTaP/Tdap/Td Vaccines (2 - Td or Tdap) 09/26/2029 09/26/2019 Zoster Vaccines (1 of 2) 2031 RSV Patients and Patients Aged 60 years or older (1 - 1-dose 75+ series) 2056 HIB Vaccines Aged Out No longer eligi ble based on patient's age to complete this topic HPV Vaccines Aged Out No longer eligi ble based on patient's age to complete this topic Hepatitis A Vaccines Aged Out No long er eligible based on patient's age to complete this topic IPV Vaccines Aged Out No longer eligi ble based on patient's age to complete this topic Meningococcal Vaccine Aged Out No courtney raj eligible based on patient's age to complete this topic RSV under 20 months Aged Out No longe r eligible based on patient's age to complete this topic Rotavirus Vaccines Aged Out No longer eligible based on patient's age to complete this topic Procedures Procedure Name Priority Date/Time Associated Diagnosis Comments BITEWINGS - 4 RADIOGRAPHIC IMAGES Routine 01/20/2023 11:00 AM EST PERIODIC ORAL EVALUATION - ESTABLISHED PATIENT Routine 01/20/2023 11:00 AM EST from Last 3 Months or Most Recently Relevant to Health Maintenance Insurance [facility] [place] [address]
--- OUTSIDE RECORDS SUMMARY | 2024-12-11 20:11 | XMS_ITS | Encounter Summary ---
Author Organization [facility] Address [address] [place] [address] 7 [place] [address] Care Team Providers Care J2Ee Consultant Name Role Phone Unavailable Primary Care Provider Unavailabl e Encounter Details Date Type Department Care Team (Latest Contact Info) Description 07/23/2021 Abstract [facility] CONVERSIONS Dental, Provider, DDS Social History Tobacco Use Types Packs/Day Years Used Date Smoking Tobacco: Never Assessed Sex and Gender Information Value Date Recorded Sex Assigned at Male 09/14/2022 10:17 AM EDT Legal Sex Male 10:17 AM EDT Gender Identity Male 09/14/2022 10:17 AM EDT Sexual Orientation Straight 09/14/2022 10 :17 AM EDT documented as of this encounter Plan of Treatment Not on file documented as of this encounter Visit Diagnoses Not on filedocumented in this encounter
== END 2024-12-11 18:49 | disposition home or self-care (01) ==
LOC: HO.ED 18:47
PROVIDERS: Physician Assistant Medical; Emergency Provider Emergency Medicine; PCP Physician Assistant
DX: J10.1 Influenza due to other identified influenza virus with other respiratory manifestations (principal); J45.909 Unspecified asthma, uncomplicated; F17.210 Nicotine dependence, cigarettes, uncomplicated; Z03.818 Encounter for observation for suspected exposure to other biological agents ruled out
CPT/HCPCS: 0241U; 71046; 87651; 99281; 99283

== ENCOUNTER → 2024-12-11 16:52 | Outpatient (BNV) | payer MEDICARE, MEDICAID, SELFPAY | PROVIDERS: PCP Physician Assistant; Visit Provider Radiology Diagnostic Radiology | DX: R05.9 Cough, unspecified (principal) | CPT/HCPCS: 71046 ==

== ENCOUNTER 2024-12-12 08:35 | Outpatient (AMB) | payer MEDICARE, MEDICAID, SELFPAY ==
--- OUTSIDE RECORDS SUMMARY | 2024-12-12 08:55 | XMS_ITS | Encounter Summary ---
Author Organization [facility] Address [address] [place] [address] [address] [place] [address] Care Team Providers Care Life Cycle Assessment Analyst Name Role Phone Unavailable Primary Care Provider Unavailabl e Encounter Details Date Type Department Care Team (Latest Contact Info) Description 07/23/2021 Abstract [facility] CONVERSIONS Dental, Provider, DDS Social History [...]
--- OUTSIDE RECORDS SUMMARY | 2024-12-12 08:55 | XMS_ITS | Clinical Summary ---
Author Organization [employer] Address [address] [place] [address] [address] [place] [address] Care Team Providers Care Dance Hall Hostess Name Role Phone Unavailable Primary Care Provider [...] Most Recently Relevant to Health Maintenance Insurance [facility] MEDICAID [place]AND [place] [phone]
--- NOTE | 2024-12-12 09:03 | AM.OFFWIN_ITS ---
Intake Vital Signs 12/12/24 09:08 Height 5 ft 6 in Weight 173 lb BMI 27.9 BP 138/90 H Blood Pressure Location Lt brachial Position Sitting Pulse 118 H Pulse Source Pulse Oximeter Temp 99.5 F Temp Source Oral Pulse Oximetry (%) 98 Oxygen Delivery Method Room Air Intake Visit Reasons: EP cough, fever (car [phone]) Intake Note: Patient here because he tested positive for the flu at the ER but ended up leaving early and was not prescribed any antibiotics. Patient Tobacco Use Status: Current everyday Tobacco user Allergies acetaminophen [ACETAMINOPHEN] Adverse Reaction (Mild, Verified 12/12/24 09:10) chest tightness SEASONAL ALLERGIES Allergy (Unknown, Uncoded 12/12/24 09:10) UNKNOWN - RECEIVES WEEKLY ALLERGY INJECTIONS Do you need a note to return to daycare/school/sports/work: No HPI HPI Comments History of Present Illness Details This is a 44-year-old male with a past medical history of asthma and bipolar disorder presenting for evaluation after being diagnosed with influenza yesterday the emergency department. Patient states he found out he had in fluenza and left the emergency department without being prescribed any medications. Patient reports having a scratchy throat, fever and body aches since Wednesday afternoon. Patient has been taking Motrin for relief of his body aches and fever. [facility] Surgical History No pertinent past surgical history Family History Father Diabetes Asthma COPD (chronic obstructive pulmonary disease) Afib Mother Hypertension Maternal Grandmother Cancer Social History Housing: Apartment Alcohol intake: current Patient Tobacco Use Status: Current everyday Tobacco user Tobacco use type: Cigarette Cigarettes Per Day: 10 e-Cigarette/Vaping Use: Never Used Second Hand Smoke Exposure: Yes service: No Current occupational status: unemployed Cognitive needs: No Hearing needs: No Vision needs: No Review of Systems Const All systems reviewed & are unremarkable except as noted in HPI and below Denies chills, Reports fatigue and Reports fever(s) Eyes Reports as per HPI ENT Reports no additional complaints, Reports as per HPI, Reports nasal congestion, Denies sinus pain and Reports sore throat Card Reports no additional complaints, Denies dyspnea and Denies dyspnea on exertion Resp Reports as per HPI, Reports no additional complaints, Reports cough, Denies dyspnea and Denies dyspnea on exertion GI Reports no additional complaints Reports no additional complaints Musc Reports other (Myalgias) Skin/Breast Reports system reviewed and no additional complaints, except as documented Neuro Reports no additional complaints Psych Reports no additional complaints Endo Reports no additional complaints and Reports fatigue Cuco/Lymph Reports no additional complaints Aller/Immun Reports no additional complaints Physical Exam Vital Signs: Last Vital Signs Temp 99.5 F 12/12/24 09:08 Pulse 118 H 12/12/24 09:08 BP 138/90 H 12/12/24 09:08 Pulse Ox 98 12/12/24 09:08 Oxygen Delivery Method Room Air 12/12/24 09:08 BMI result Body Mass Index 27.9 Const General: cooperative, comfortable, well developed, alert, awake and Physically active; No lethargic Nutritional Appearance: average body habitus Orientation/consciousness: patient oriented x3 and No lethargic Limitations: no limitations HEENT Head: Yes normal to inspection and Yes normocephalic Ears: hearing grossly normal bilaterally, external ears normal, TM's abnormal bilaterally (TMs bulging bilaterally without erythema) and EAC's normal General nose exam: Normal external nose present Face and sinus: Yes normal facial exam and Yes sinuses nontender Mouth: Normal oral and palatal mucosa present Throat: Yes posterior oropharynx normal Eyes General: appearance normal, both eyes and all related structures Neck Lymphatic: no lymphadenopathy noted Resp Effort & Inspection: normal respiratory effort, able to speak in complete sentences, no audible wheezes, Actively coughing and no respiratory distress Auscultation: clear to auscultation bilaterally Cardio Rate: regular rate (96bpm at time of examination) Rhythm: regular rhythm Skin General skin exam: no rashes or lesions noted Neuro General: patient oriented x3 Psych Appearance: grossly normal Mental Status: mental status grossly normal Insight: Good insight present (Psych) Judgement: Good judgement present (Psych) Assessment & Plan Assessment & Plan (1) Influenza: Code(s): J11.1 - Influenza due to unidentified influenza virus with other respiratory manifestations Plan Patient is afebrile without tachypnea or tachycardia on examination. Patient's visit to the emergency department including imaging and viral panel are reviewed. Given the patient's chronicity of symptoms, Tamiflu will be prescribed. Medications: New oseltamivir (Tamiflu) 75 mg PO BID 5 days 10 caps 0RF Patient Instructions: Tamiflu twice daily x5 days, ibuprofen or Tylenol as needed for fevers and myalgias. Coding Level of Care Code Est Pt Level 3 (44996) Diagnoses Influenza J11.1 Time Spent (min) 20
[2024-12-12 09:08] VITALS: BP 138/90; PULSE 118; TEMP 37.5; O2SAT 98; BMI 27.9
== END 2024-12-12 09:55 | disposition home or self-care (01) ==
PROVIDERS: PCP Physician Assistant; Visit Provider Physician Assistant
DX: J11.1 Influenza due to unidentified influenza virus with other respiratory manifestations (principal)

== ENCOUNTER → 2024-12-12 08:35 | Outpatient (BNVA) | payer MEDICARE, MEDICAID, SELFPAY | PROVIDERS: PCP Physician Assistant | DX: J11.1 Influenza due to unidentified influenza virus with other respiratory manifestations (principal) | CPT/HCPCS: 99212 ==

== ENCOUNTER 2025-07-05 09:31 | Outpatient (AMB) | payer MEDICARE, MEDICAID, SELFPAY ==
--- OUTSIDE RECORDS SUMMARY | 2025-07-05 10:44 | XMS_ITS | Clinical Summary ---
Author Organization [email or web address] Address [address] [place] [address] [address] [place] [address] Care Team Providers Care Manager Maritime Name Role Phone Unavailable Primary Care Provider [...] 1981 Lipid Panel 1981 SDOH Screening 1981 Disability Screening 1981 Alcohol/Substance Use Screening 1993 Family Planning (PISQ) 1996 HPV Vaccines (1 - Male 3-dose series) 1996 Hepatitis C Screening 1999 Hepatitis B Vaccines (1 of 3 - 19+ 3-dose series) 2000 Pneumococcal Vaccine: Pediatrics (0 to 5 Years) and At-Risk Patients (6 to 49) Years (2 of 2 - PCV) 09/26/2019 09/26/2018 Dental Oral Exam 07/24/2023 01/20/2023 Dental X-Ray: Bitewings 01/22/2024 01/20/2023, 12/28 Tobacco Screening 03/23/2024 03/23/2023 COVID-19 Vaccine ( season) 2024 11/17/2021, 02/20/2021, 01/24/2021 Influenza Vaccine (#1) 2025 2, 09/30/2020, 10/30/2019, Additional history exists DTaP/Tdap/Td [...] patient's age to complete this topic Meningococcal B Vaccine Aged Out No l onger eligible based on patient's age to complete [...] Most Recently Relevant to Health Maintenance Insurance [facility] [employer] STAND ADULT
== END 2025-07-05 09:33 | disposition home or self-care (01) ==
LOC: HO.HMGAL 09:32
PROVIDERS: PCP Physician Assistant; Visit Provider Registered Nurse Emergency
DX: J30.89 Other allergic rhinitis (principal)
CPT/HCPCS: 95117; 95165

== ENCOUNTER 2025-07-25 10:03 | Outpatient (AMB) | payer MEDICARE, MEDICAID, SELFPAY ==
--- OUTSIDE RECORDS SUMMARY | 2025-07-25 12:11 | XMS_ITS | Clinical Summary ---
Author Organization [employer] Address [address] [place] [address] [address] [place] [address] Care Team Providers Care Machine Wood Sander Name Role Phone Unavailable Primary Care Provider [...] Screening 03/23/2024 03/23/2023 COVID-19 Vaccine ( season) 2025 11/17/2021, 02/20/2021, 01/24/2021 Influenza Vaccine (#1) 2025 [...]
--- OUTSIDE RECORDS SUMMARY | 2025-07-25 12:11 | XMS_ITS | Encounter Summary ---
Author Organization [facility] Address [address] [place] [address] [address] [place] [address] Care Team Providers Care Director Of Tax Services Name Role Phone Unavailable Primary Care Provider Unavailabl e Encounter Details Date Type Department Care Team (Latest Contact Info) Description 07/23/2021 Abstract [facility] CONVERSIONS Dental, Provider, DDS Social History Tobacco [...]
== END 2025-07-25 10:04 | disposition home or self-care (01) ==
LOC: HO.HMGAL 10:03
PROVIDERS: PCP Physician Assistant; Visit Provider Registered Nurse Emergency
DX: J30.89 Other allergic rhinitis (principal)
CPT/HCPCS: 95117; 95165

== ENCOUNTER 2025-07-30 08:46 | Outpatient (AMB) | payer MEDICARE, MEDICAID, SELFPAY ==
--- NOTE | 2025-07-30 08:55 | AM.OFFWIN_ITS ---
Intake Vital Signs 07/30/25 08:58 Height 5 ft 6 in Weight 176 lb BMI 28.4 BP 126/88 Blood Pressure Location Lt brachial Position Sitting Respiration 16 Pulse 80 Pulse Source Pulse Oximeter Temp 98.5 F Temp Source Oral Pulse Oximetry (%) 98 Intake Visit Reasons: EP Cough, fever, phlegm, nauseous Patient Tobacco Use Status: Current everyday Tobacco user Propagation Worker Required: No Accompanied by: Self / Same As Patient Allergies acetaminophen (ACETAMINOPHEN) Adverse Reaction (Mild, Verified 07/30/25 08:59) chest tightness SEASONAL ALLERGIES Allergy (Unknown, Uncoded 12/12/24 09:10) UNKNOWN - RECEIVES WEEKLY ALLERGY INJECTIONS HPI HPI Comments History of Present Illness Details History - The patient is a 44-year-old male pres enting with symptoms of wheezing, fever, and productive cough with green sputum. - The patient reports a history of asthm a and has been experiencing wheezing and fever, particularly at night, with cold sweats. - He has a history of bronchitis, which tends to exacerbate with colds. - The patient has not been smoking for a few days due to the onset of symptoms. - His children have similar symptoms, an d his youngest son tested negative for COVID-19. - The patient attempted to refill his Pr oAir inhaler but was out of refills. - He does not currently have Symbicort b ut uses a nebulizer for relief from coughing and wheezing. - He denies fever, chills, sore throat, ear pain, abd pain, or n/v/d. Physical Exam General: Cooperative, healthy appearing, comfortable and no acute distress Orientation/consciousness: Patient oriented x3 Limitations: No limitations Head: Normal to inspection Ears: Hearing grossly normal bilaterally, external ears normal and TM's normal bilaterally Nose: Normal external nose present, normal nares present, and no nasal discharge present. Face and sinus: Sinuses nontender to palpation. Mouth: Normal oral and palatal mucosa present and moist mucous membranes noted. Throat: Tonsils normal. Uvula is midline. Posterior oropharynx with erythema and no exudates. Eyes: Appearance normal, both eyes and all related structures Neck: Normal visual inspection, full ROM. No lymphadenopathy noted. Respiratory: Clear to auscultation bilaterally. Normal respiratory effort, able to speak in complete sentences. No respiratory distress, not tachypneic, no tripod positioning and no use of accessory muscles. Wheezing noted. Cardiovascular: Regular rate and rhythm. Normal S1 and S2 Skin: No rashes or lesions noted Patient was informed and verbally consented to the use of an ambient scribe for clinic note documentation during this visit [facility] Surgical History No pertinent past surgical history Family History Father Diabetes Asthma COPD (chronic obstructive pulmonary disease) Afib Mother Hypertension Maternal Grandmother Cancer Social History Housing: Apartment Alcohol intake: current Patient Tobacco Use Status: Current everyday Tobacco user Tobacco use type: Cigarette Cigarettes Per Day: 10 e-Cigarette/Vaping Use: Never Used Second Hand Smoke Exposure: Yes service: No Current occupational status: unemployed Cognitive needs: No Hearing needs: No Vision needs: No Review of Systems Const All systems reviewed & are unremarkable except as noted in HPI and below Physical Exam Vital Signs: Last Vital Signs Temp 98.5 F 07/30/25 08:58 Pulse 80 07/30/25 08:58 Resp 16 07/30/25 08:58 BP 126/88 07/30/25 08:58 Pulse Ox 98 07/30/25 08:58 BMI result Body Mass Index 28.4 Assessment & Plan Assessment & Plan (1) Cough: Code(s): R05.9 - Cough, unspecified Plan Most likely URI vs covid vs flu vs RSV vs viral illness vs bronchitis plan - Refill of albuterol inhaler prescribed. - Symbicort to be refilled for maintenance therapy. - Nebulizer solutions to be provided for symptomatic relief. - Cough medicine and prednisone prescribed to manage symptoms. - Z-Corey prescribed, with instructions to discontinue if viral infection is confirmed. - follow up with PCP Orders: Orders Resp Pathogen Panel - [facility] [place] Today J06.9 - Acute upper respiratory infection, unspecified Medications: New prednisone 40 mg (2 x 20 mg) PO DAILY 10 tabs 0RF 5 days albuterol sulfate 1.25 mg (3 mL) inhalation Q4-6H PRN 75 mL 0RF Shortness Of Breath Or Wheezing 7 days benzonatate 100 mg PO bid-tid PRN 21 caps 0RF Cough 7 days azithromycin For 250 mg dose pack: take 500 mg today (day 1), then 250 mg for 4 days (days 2-5) PO 6 tabs 0RF Refilled albuterol sulfate 90 mcg/actuation 2 puffs PO Q4H 8.5 grams 3RF 30 days J45.20 - Mild intermittent asthma, uncomplicated budesonide-formoterol 160-4.5 mcg/actuation (Symbicort) 1 inh inhalation BID 10.2 grams 1RF 30 days J45.20 - Mild intermittent asthma, uncomplicated Coding Level of Care Code Est Pt Level 3 (52144) Diagnoses Cough R05.9
[2025-07-30 08:58] VITALS: BP 126/88; PULSE 80; RESP 16; TEMP 36.9; O2SAT 98; BMI 28.4
--- OUTSIDE RECORDS SUMMARY | 2025-07-30 09:59 | XMS_ITS | Clinical Summary ---
Author Organization [employer] Address [address] [place] [address] [address] [place] [address] Care Team Providers Care Deputy Chief Magistrate Name Role Phone Unavailable Primary Care Provider [...]
--- OUTSIDE RECORDS SUMMARY | 2025-07-30 09:59 | XMS_ITS | Encounter Summary ---
Author Organization [facility] Address [address] [place] [address] 7 [place] [address] Care Team Providers Care Alarm Operator Name Role Phone Unavailable Primary Care Provider Unavailabl e Encounter Details Date Type Department Care Team (Latest Contact Info) Description 07/23/2021 Abstract [facility] CONVERSIONS Dental, Provider, DDS Social History Tobacco [...]
== END 2025-07-30 09:41 | disposition home or self-care (01) ==
PROVIDERS: PCP Physician Assistant; Visit Provider Physician Assistant Medical
DX: R05.9 Cough, unspecified (principal)

== ENCOUNTER → 2025-07-30 08:46 | Outpatient (BNVA) | payer MEDICARE, MEDICAID, SELFPAY ==
[2025-07-30 15:51] LABS: Chlamydia pneumoniae PCR Not Detected (Not Detect.); Coronavirus 229E PCR Not Detected (Not Detect.); Coronavirus HKU1 PCR Not Detected (Not Detect.); Coronavirus NL63 PCR Not Detected (Not Detect.); Coronavirus OC43 PCR Not Detected (Not Detect.); RSV PCR Not Detected (Not Detect.); Rhino/Enterovirus PCR Detected (Not Detect.)
[2025-07-30 16:37] LABS: Influenza A H1 PCR Not Detected (Not Detect.); Influenza A H1-2009 PCR Not Detected (Not Detect.); Influenza A H3 PCR Not Detected (Not Detect.); SARS-CoV-2 PCR Not Detected (Not Detect.)
== END ==
PROVIDERS: PCP Physician Assistant; Visit Provider Physician Assistant Medical
DX: J06.9 Acute upper respiratory infection, unspecified (principal); J45.20 Mild intermittent asthma, uncomplicated; R50.9 Fever, unspecified; R05.1 Acute cough
CPT/HCPCS: 87633; 99212

== ENCOUNTER 2025-08-01 09:26 | Outpatient (AMB) | payer MEDICARE, MEDICAID, SELFPAY ==
--- OUTSIDE RECORDS SUMMARY | 2025-08-01 11:06 | XMS_ITS | Encounter Summary ---
Author Organization [facility] Address [address] [place] [address] [address] [place] [address] Care Team Providers Care Claims Configuration Analyst Name Role Phone Unavailable Primary Care Provider Unavailabl e Encounter Details Date Type Department Care Team (Latest Contact Info) Description 07/23/2021 Abstract [facility] CONVERSIONS Dental, Provider, DDS Social History [...]
--- OUTSIDE RECORDS SUMMARY | 2025-08-01 11:06 | XMS_ITS | Clinical Summary ---
Author Organization [employer] [facility] Address [address] [place] [address] [address] [place] [address] Care Team Providers Care Auto Technician Mechanic Name Role Phone Unavailable Primary Care Provider [...]
== END 2025-08-01 09:51 | disposition home or self-care (01) ==
LOC: HO.HMGAL 09:26
PROVIDERS: PCP Physician Assistant; Visit Provider Registered Nurse Emergency
DX: J30.89 Other allergic rhinitis (principal)
CPT/HCPCS: 95117; 95165

== ENCOUNTER 2025-08-08 15:38 | Outpatient (AMB) | payer MEDICARE, MEDICAID, SELFPAY ==
--- OUTSIDE RECORDS SUMMARY | 2025-08-08 17:53 | XMS_ITS | Clinical Summary ---
Author Organization [employer] Address [address] [place] [address] [address] [place] [address] Care Team Providers Care Vice President Of Development Name Role Phone Unavailable Primary Care Provider [...]
--- OUTSIDE RECORDS SUMMARY | 2025-08-08 17:53 | XMS_ITS | Encounter Summary ---
Author Organization [facility] [facility] Address [address] [place] [address] [address] [place] [address] Care Team Providers Care Title One Teacher Name Role Phone Unavailable Primary Care Provider Unavailabl e Encounter Details Date Type Department Care Team (Latest Contact Info) Description 07/23/2021 Abstract [facility] CONVERSIONS Dental, Provider, DDS Social [...]
== END 2025-08-08 15:41 | disposition home or self-care (01) ==
LOC: HO.HMGAL 15:38
PROVIDERS: PCP Physician Assistant; Visit Provider Registered Nurse Emergency
DX: J30.89 Other allergic rhinitis (principal)
CPT/HCPCS: 95117; 95165

== ENCOUNTER 2025-09-10 13:21 | Outpatient (AMB) | payer MEDICARE, MEDICAID, SELFPAY | END 2025-09-10 13:22 | disposition home or self-care (01) | LOC: HO.HMGAL 13:21 | PROVIDERS: PCP Physician Assistant; Visit Provider Registered Nurse Emergency | DX: J30.89 Other allergic rhinitis (principal) | CPT/HCPCS: 95117; 95165 ==

== ENCOUNTER 2025-10-17 13:55 | Outpatient (AMB) | payer MEDICARE, MEDICAID, SELFPAY ==
--- OUTSIDE RECORDS SUMMARY | 2025-10-17 16:41 | XMS_ITS | Encounter Summary ---
Author Organization [facility] Address [address] [place] [address] [address] [place] [address] Care Team Providers Care Business Development Coordinator Name Role Phone Unavailable Primary Care Provider Unavailabl e Encounter Details Date Type Department Care Team (Latest Contact Info) Description 07/23/2021 Abstract [facility] CONVERSIONS Dental, Provider, DDS Social [...]
--- OUTSIDE RECORDS SUMMARY | 2025-10-17 16:41 | XMS_ITS | Clinical Summary ---
Author Organization [employer] Address [address] [place] [address] [address] [place] [address] Care Team Providers Care Solar Site Assessment Specialist Name Role Phone Unavailable Primary Care Provider [...]
== END 2025-10-17 14:03 | disposition home or self-care (01) ==
LOC: HO.HMGAL 13:55
PROVIDERS: PCP Physician Assistant; Visit Provider Registered Nurse Emergency
DX: J30.89 Other allergic rhinitis (principal)
CPT/HCPCS: 95117; 95165

== ENCOUNTER 2025-10-23 09:30 | Outpatient (REF) | payer MEDICARE, MEDICAID, SELFPAY ==
[2025-10-23 14:10] LABS: Resp Syncy Virus RNA Qual PCR NEGATIVE (Negative); SARS COV2 PCR INHOUSE NEGATIVE (Negative)
== END 2025-10-23 09:31 | disposition home or self-care (01) ==
LOC: HO.LAB 09:30
PROVIDERS: Physician Assistant; PCP Physician Assistant
DX: J06.9 Acute upper respiratory infection, unspecified (principal); R09.89 Other specified symptoms and signs involving the circulatory and respiratory systems; F17.210 Nicotine dependence, cigarettes, uncomplicated; Z79.51 Long term (current) use of inhaled steroids
CPT/HCPCS: 87637; 99212

== ENCOUNTER 2025-10-23 09:30 | Outpatient (AMB) | payer MEDICARE, MEDICAID, SELFPAY ==
[2025-10-23 09:34] VITALS: BP 120/70; PULSE 75; TEMP 36.8; O2SAT 98; BMI 27.8
--- NOTE | 2025-10-23 09:34 | AM.OFFWIN_ITS ---
Intake Vital Signs 10/23/25 09:34 Height 5 ft 6 in Weight 172 lb BMI 27.8 BP 120/70 Blood Pressure Location Rt brachial Position Sitting Pulse 75 Pulse Source Pulse Oximeter Temp 98.2 F Temp Source Oral Pulse Oximetry (%) 98 Oxygen Delivery Method Room Air Intake Visit Reasons: EP-cough, green saliva, sore throat Intake Note: Patient presents c/o cough- green phlegm, fevers/chills, nasal congestion x2 days. Patient Tobacco Use Status: Current everyday Tobacco user Allergies acetaminophen (ACETAMINOPHEN) Adverse Reaction (Mild, Verified 10/23/25 09:37) chest tightness SEASONAL ALLERGIES Allergy (Unknown, Uncoded 10/23/25 09:37) UNKNOWN - RECEIVES WEEKLY ALLERGY INJECTIONS HPI HPI Comments History of Present Illness Details History - The patient is a 44 year old male pres enting with cough and production of green sputum x2 days. - His symptoms began on Wednesday, and his primary concern is the productive cough with green sputum, which he associates with an infection. - He also reports fevers at night, wakin g up sweaty, coughing, headaches, and some nasal congestion. - He denies any ear pain. - The patient's son was recently seen an d diagnosed with an ear infection but tested negative for other illnesses. - He has a history of asthma and uses a Symbicort inhaler twice daily. - He reports intermittent shortness of b reath and wheezing, and he used his albuterol nebulizer once this morning. - He has a history of allergies and has been taking mplw-jcn-pvaetre allergy rel ief medication, such as Zyrtec (cetirizine) and loratadine, to help with nasal symptoms. - He reports a history of smoking but is trying not to smoke currently. UTILITY AIDE student Nae Jerry conducted HPI [facility] Surgical History No pertinent past surgical history Family History Father Diabetes Asthma COPD (chronic obstructive pulmonary disease) Afib Mother Hypertension Maternal Grandmother Cancer Social History Housing: Apartment Alcohol intake: current Patient Tobacco Use Status: Current everyday Tobacco user Tobacco use type: Cigarette Cigarettes Per Day: 10 e-Cigarette/Vaping Use: Never Used Second Hand Smoke Exposure: Yes service: No Current occupational status: unemployed Cognitive needs: No Hearing needs: No Vision needs: No Review of Systems Narrative Review of Systems - Constitutional: Reports subjective fevers at night with sweating. - Respiratory: Reports productive cough with green sputum, intermittent shortness of breath, and some wheezing. - ENT: Reports some nasal congestion. Denies ear pain. - Neurological: Reports headaches. All systems reviewed and are unremarkable except as noted in HPI Physical Exam Exam Exam: Physical Exam General: Cooperative, healthy appearing, comfortable and no acute distress Orientation/consciousness: Patient oriented x3 Limitations: No limitations Head: Normal to inspection Ears: Hearing grossly normal bilaterally, external ears normal, EAC's normal bilaterally and TM's normal bilaterally Nose: Normal external nose present, Normal nares present, and clear nasal discharge present Face and sinus: Normal facial exam and sinuses nontender Mouth: Normal oral and palatal mucosa present and moist mucous membranes Throat: uvula midline, posterior oropharynx erythema Eyes: Appearance normal, both eyes and all related structures Neck: Normal visual inspection, full ROM Respiratory: Clear to auscultation bilaterally. Normal respiratory effort, able to speak in complete sentences, actively coughing, no respiratory distress, not tachypneic, no tripod positioning and no use of accessory muscles Cardiovascular: Regular rate and rhythm. Normal S1 and S2 Skin: No rashes or lesions noted Neuro: Patient oriented x3 Extremities: Normal to inspection and Yes no clubbing, cyanosis or edema Vital Signs: Last Vital Signs Temp 98.2 F 10/23/25 09:34 Pulse 75 10/23/25 09:34 BP 120/70 10/23/25 09:34 Pulse Ox 98 10/23/25 09:34 Oxygen Delivery Method Room Air 10/23/25 09:34 BMI result Body Mass Index 27.8 Assessment & Plan Assessment & Plan (1) URI (upper respiratory infection): Code(s): J06.9 - Acute upper respiratory infection, unspecified Qualifiers: URI type: unspecified URI Qualified Code(s): J06.9 - Acute upper respiratory infection, unspecified Plan Plan Patient was informed and verbally consented to the use of an ambient scribe for clinic note documentation during this visit. - VSS, pt well appearing and PE unremarkable. - A swab for Influenza, COVID-19, and RSV will be performed, with results expected later today. - A prescription for a cough suppressant will be sent to the pharmacy, with a caution to keep the medication away from children. - Recommended fxnd-cnd-ihztyvv treatments include cough drops, Advil for sore throat, and Tylenol for fever. - Instructed to continue using his Symbicort inhaler twice daily and to use his inhaler or nebulizer before bed. - He is currently using vglx-zcf-bodoooc allergy medications such as cetirizine or loratadine. - It was suggested that he could try a decongestant, either separately or in a combination product with an antihistamine, for his nasal symptoms. Orders: Orders SARS-CoV2/FLU/RSV Today R09.89 - Other specified symptoms and signs involving the circulatory and respiratory systems Medications: New benzonatate DO NOT ALLOW CHILDREN TO HAVE ACCESS TO THIS MEDICATION IT IS DANGEROUS FOR CHILDREN. 200 mg PO BEDTIME PRN 10 caps 0RF cough Discontinued albuterol sulfate Discontinued Reason: Duplicate 1.25 mg (3 mL) inhalation Q4-6H 7 days PRN 75 mL 0RF Shortness Of Breath Or Wheezing Coding Level of Care Code Est Pt Level 3 (78589) Diagnoses Upper respiratory tract infection, unspecified type J06.9 URI type: unspecified URI
== END 2025-10-23 10:04 | disposition home or self-care (01) ==
PROVIDERS: PCP Physician Assistant; Visit Provider Physician Assistant
DX: J06.9 Acute upper respiratory infection, unspecified (principal)